=== PATIENT | female | born 1965 | race Caucasian/White ===

== ENCOUNTER 2019-06-06 21:40 | Emergency (ER) | payer BC ==
[~2019-06-06] VITALS: Ht 162.6 cm; Wt 95.3 kg
[2019-06-06] MEDS ORDERED: LIDOCAINE HCL 1% 20 ML VIAL IJ ONE (23:30)
[2019-06-06] MEDS ORDERED: TDAP DIPH,PERTUSS,TET VAC/PF 0.5 ML DISP.SYRIN IM ONE ×2 (23:30→23:31)
[2019-06-07] MEDS ORDERED: NEOMY/BACITRA/POLYMYXIN B OINT UD PACKET TP ONE (01:13)
--- NOTE | 2019-06-07 01:17 | NUR ---
Patient discharged to home in stable conditon. Written and verbal after care instructions given. Patient verbalizes understanding of instructions. Pt ambulated out of ER with steady gait, no acute signs of distress, VSS, all belongings taken.
[2019-06-07 01:18] VITALS: BP 145/85
== END 2019-06-07 01:18 | disposition home or self-care (01) ==
LOC: ER 21:40
DX: S61.210A Laceration without foreign body of right index finger without damage to nail, initial encounter (principal); X58.XXXA Exposure to other specified factors, initial encounter; Y93.89 Activity, other specified; Y92.89 Other specified places as the place of occurrence of the external cause; Y99.8 Other external cause status
CPT/HCPCS: 12002; 90471; 90715; 99283; J3490; A4217; A4663